=== PATIENT | male | born 1985 | race Caucasian/White ===

== ENCOUNTER 2016-12-16 09:28 | Emergency (ER) | payer OTHER ==
[~2016-12-16] VITALS: Ht 185.4 cm; Wt 72.5 kg
[2016-12-16 09:31] VITALS: Ht 185.4 cm; Wt 72.5 kg
[2016-12-16] MEDS ORDERED: ONDANSETRON (ODT) 4 MG TAB ODT STA (09:50)
--- NOTE | 2016-12-16 09:56 | ERD ---
ER Documentation Chief Complaint Date/Time DATE: 12/16/16 TIME: 09:54 Chief Complaint vomiting /diarrhea since midnight HPI 31-year-old male otherwise healthy comes emergency with vomiting and diarrhea that started last night around midnight. Patient reports up to 10 episodes of nonbloody nonbilious emesis with several episodes of stools, there is no history hematemesis or black or tarry stools. He also reports diffuse crampy abdominal pain. No fevers, chills. Patient reports that it might of been him some old chicken that he had eaten last night. No travel. ROS All systems reviewed and are negative except as per history of present illness. Medications Home Meds Active Scripts Dicyclomine Hcl* (Bentyl*) 10 Mg Capsule, 10 MG PO QID, #12 CAP Prov:MANUEL GUPTA PA-C 12/16/16 Ondansetron (Ondansetron Odt) 4 Mg Tab.rapdis, 4 MG PO Q6H Y for NAUSEA AND/OR VOMITING, #10 TAB Prov:MANUEL GUPTA PA-C 12/16/16 Allergies Allergies: Coded Allergies: No Known Allergy (Unverified , 12/16/16) PMhx/Soc Medical and Surgical Hx: pt denies Surgical Hx History of Surgery: No Anesthesia Reaction: No Hx Neurological Disorder: No Hx Respiratory Disorders: No Hx Cardiac Disorders: No Hx Psychiatric Problems: No Hx Miscellaneous Medical Probl: Yes (sz due to alcohol withdrawal) Hx Alcohol Use: No Hx Substance Use: No Hx Tobacco Use: No Smoking Status: Never smoker Physical Exam Vitals Vital Signs Date Time Temp Pulse Resp B/P Pulse Ox O2 Delivery O2 Flow Rate FiO2 12/16/16 09:31 99.2 98 18 139/65 98 Physical Exam General: Well-developed, well-nourished. The patient appears in no acute distress. HEENT: Head is normocephalic, atraumatic. No scleral icterus. Neck: Supple. Nontender. Lungs: Clear to auscultation. Normal air movement. Heart: Regular rate and rhythm. S1 and S2 are normal. No murmurs, gallops, or rubs. Abdomen: Soft, diffuse abdominal tenderness, nondistended. Bowel sounds are normoactive. No rebound pain. Extremities: No clubbing or cyanosis. Normal pulses. Moving extremities x 4. No weakness. Neurologic: Alert and oriented 3. No focal deficits. Skin: Normal turgor. No rash or lesions. Results 24 hrs Current Medications Medications (Trade) Dose Ordered Sig/Vivi Route PRN Reason Start Time Stop Time Status Last Admin Dose Admin Ondansetron HCl (Zofran Odt) 8 mg ONCE STAT ODT 12/16/16 09:50 12/16/16 09:51 DC 12/16/16 09:56 Procedures/MDM ER course: Patient was given Zofran 8 mg ODT. MDM: 31-year-old male comes in with abdominal cramping, vomiting and diarrhea, patient reports that this happened and it could have been from food poisoning. He was given Zofran emergency department able to tolerate by mouth. I do not see any signs of acute appendicitis, bowel obstruction, acute hepatobiliary process or pancreatitis. His abdominal pain is diffuse and cramping of nature. Given his history of eating chicken, patient will be covered with antibiotics. There are no signs of diverticulitis, intra-abdominal abscess, or an acute surgical abdominal process. Departure Diagnosis: Primary Impression: Vomiting and diarrhea Condition: MANUEL Mcconnell PA-C December 16, 2016 09:56
[2016-12-16] MEDS ORDERED: ONDA4TAB14 PO (10:54)
[2016-12-16] MEDS ORDERED: DICY10CA60 PO (10:54)
[2016-12-16] MEDS ORDERED: CIPR500T4 PO (11:01)
[2016-12-16 11:23] VITALS: BP 129/66; PULSE 78; RESP 18; TEMP 98.9
== END 2016-12-16 11:25 | disposition home or self-care (01) ==
LOC: FTE 09:28
DX: R11.10 Vomiting, unspecified (principal); R19.7 Diarrhea, unspecified
CPT/HCPCS: 99284